=== PATIENT | male | born 2000 | race Caucasian/White ===

== ENCOUNTER 2022-04-10 21:17 | Emergency (ER) | payer MEDICAID, SELFPAY ==
--- NOTE | 2022-04-10 21:41 | ED.GENADUL_ITS ---
Discharge Plan Disposition Patient Disposition: HOME Condition: Stable Discharge Details Clinical Impression: Tick bite Primary Care Provider: Lola Chahal ED Provider: Tanner Espinosa Home Meds and New Rx's Prescriptions: Continued fluoxetine 10 mg capsule 10 mg PO DAILY Qty: 90 1RF Discharge Instructions Instructions: Tick Bite (ED) Additional Instructions: you were given a dose of an antibiotic to help prevent tick born illness such as lyme disease if you develop fevers, severe pain, a bulls eye appearing rash return to the emergency department Medical Decision Making 21 yo male comes in after he noticed a tick on his left upper arm. He states he is not sure how long the tick was on there for thinks it may have been a few days. He denies any fevers, chills, body aches. He removed the tick and came here. He has a 2mm erythema surrounding where the tick was on his right upper inner arm, no drainage, no bulls eye, no tenderness. He had a embedded head that I removed with tweezers. Given it has been on him for up to 36 hours or more will provide prophylactic dose of doxy. He is stable for d/c, return precautions given Differential Diagnosis Differential Diagnosis: tick bite, cellulitis HPI General Mode of arrival: ambulatory . Date/Time Provider Initiated Documentation: 04/10/22 21:40 . Limitations to Documentation: no limitations . Information obtained by: patient . History of Present Illness 21 year old M presents to the emergency department with the chief complaint of tick bite, described as mild, Patient started experiencing this hour(s) (1) and it has been constant. No relieving factors improve symptom(s), No exacerbating factors reported . Patient notes no other symptoms.. Related Data Home Medications Medication Instructions Recorded Confirmed fluoxetine 10 mg capsule 10 mg PO DAILY #90 caps 07/19/20 07/19/20 Previous Rx's Medication Instructions Recorded fluoxetine 10 mg capsule 10 mg PO DAILY #90 caps 07/19/20 Allergies Allergy/AdvReac Type Severity Reaction Status Date / Time No Known Allergies Allergy Verified 07/15/18 14:54 General Stated Complaint: GenMedical GABRIELE: 4 Review of Systems All systems reviewed & are unremarkable except as noted in HPI and below Constitutional Constitutional: Denies chills, Denies fever(s) and Denies weakness Cardiovascular Cardiovascular: Denies chest pain and Denies dyspnea Respiratory Respiratory: Denies cough and Denies dyspnea Gastrointestinal Gastrointestinal: Denies abdominal pain, Denies nausea and Denies vomiting Integumentary/Breasts Skin/Breast: Denies rash Neurologic Neurologic: Denies weakness PFSH All Active Problems (Updated 04/10/22 @ 21:47 by Tanner Espinosa MD) Tick bite (Acute) Obsessive compulsive disorder (Acute 11/20/14) Dyslexia (Acute) iep and extra help at school 07/09 Routine child health exam (Acute 03/24/16) Anxiety (Acute 09/28/16) ADHD (attention deficit hyperactivity disorder), inattentive type (Acute 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 Father No problems noted. Social History Smoking/Tobacco Use Status: Never Smoking risk assessment performed?: Yes Alcohol Intake: never Substance use type: does not use Pets and animals: Yes Pets and animals: cat(s), dog(s), turtle(s) and other Details: goats and a donkey, chickens Seatbelt use: always Helmet use: Yes Helmet use: always Water heater temp set <120 deg: Yes Fire extinguisher in home: Yes Carbon monox detector in home: Yes Firearms in home: Yes Firearms unloaded and locked: Yes Exam Const General: no acute distress Orientation: alert HENMT Head: normal to inspection Ears: external ears normal General nose exam: external nose normal Mouth: moist mucous membranes Eyes General: appearance normal, both eyes and all related structures Neck Neck: normal visual inspection Resp Effort & Inspection: normal respiratory effort and able to speak in complete sentences Cardio Rate: regular rate Skin General skin exam: no rashes or lesions noted Neuro General: patient alert and patient oriented x3 Extrem General: full ROM and capillary refill normal Psych Mental Status: mental status grossly normal
[2022-04-10] MEDS: Doxycycline Hyclate 100 MG CAP 200 MG PO (21:45)
[2022-04-10 21:47] VITALS: BP 128/74; PULSE 64; RESP 16; TEMP 37; O2SAT 98
== END 2022-04-10 22:01 | disposition home or self-care (01) ==
PROVIDERS: Emergency Provider Emergency Medicine; PCP Student in an Organized Health Care Education/Training Program
DX: S41.152A Open bite of left upper arm, initial encounter (principal); F98.8 Other specified behavioral and emotional disorders with onset usually occurring in childhood and adolescence; W57.XXXA Bitten or stung by nonvenomous insect and other nonvenomous arthropods, initial encounter
CPT/HCPCS: 99283; 99284